=== PATIENT | female | born 1945 | race African-American/Black ===

== ENCOUNTER 2019-08-10 12:12 | Emergency (ER) | payer OTHER ==
[~2019-08-10] VITALS: Ht 182.9 cm; Wt 101.2 kg
[2019-08-10] MEDS ORDERED: ATORVASTATIN CA20 MG (12:39)
[2019-08-10] MEDS ORDERED: DILTIAZEM ER120 M2 (12:39)
[2019-08-10] MEDS ORDERED: ZESTORETIC 10-1 EACH (12:40)
== END 2019-08-10 15:05 | disposition home or self-care (01) ==
LOC: ER 12:12
DX: R60.0 Localized edema (principal)